=== PATIENT | female | born 1980 | race African-American/Black ===

== ENCOUNTER 2018-09-19 17:06 | Emergency (ER) | payer OTHER ==
[2018-09-19] MEDS ORDERED: SODIUM CHLORIDE 0.9% 1,000 ML IV ONE (18:08)
[2018-09-19] MEDS ORDERED: MORPHINE 10 MG/ML VIAL IVP STA (18:08)
[2018-09-19] MEDS ORDERED: diphenhydrAMINE INJ 50 MG/ML VIAL IVP STA (18:08)
[2018-09-19] MEDS ORDERED: PROCHLORPERAZINE 10 MG/2 ML VIAL IVP STA (18:08)
--- NOTE | 2018-09-19 18:10 | ED Physician Documentation ---
PD HPI HEADACHE - Stated complaint Stated Complaint: HEADACHE, VOMITING - Chief complaint Chief Complaint: Neuro - History obtained from History obtained from: Patient - History of Present Illness Timing - onset: Last night (She had a gradual onset occipital headache since last night with light sensitivity and vomiting. She has a history of migraines but they have been under control because they were thought to be due to lupus and her lupus is in remission. This headache is worse and somewhat different than her usual headaches and is associated with chills and neck stiffness and she is never vomited with her migraines before.) Review of Systems Constitutional: reports: Chills. denies: Fever Eyes: reports: Photophobia Ears: denies: Loss of hearing, Ear pain Cardiac: denies: Chest pain / pressure, Palpitations Respiratory: denies: Dyspnea, Cough GI: denies: Abdominal Pain : reports: Hysterectomy. 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 - Present Medications Home Medications: Ambulatory Orders Medication Instructions Recorded Confirmed SUMAtriptan [Imitrex] 25 mg PO BID PRN #10 tablet 09/19/18 - Allergies Allergies/Adverse Reactions: Allergies Allergy/AdvReac Type Severity Reaction Status Date / Time No Known Drug Allergies Allergy Verified 09/19/18 17:19 - Social History Does the pt smoke?: No Smoking Status: Never smoker Does the pt drink ETOH?: Yes Does the pt have substance abuse?: No - Immunizations Immunizations are current?: Yes - POLST Patient has POLST: No PD ED PE NORMAL - Vitals Vital signs reviewed: Yes - General General: Alert and oriented X 3, Other (Uncomfortable) - HEENT HEENT: PERRL, EOMI - Neck Neck: No bony TTP, Other (She does have some neck stiffness) - Cardiac Cardiac: RRR, No murmur - Respiratory Respiratory: No respiratory distress, Clear bilaterally - Abdomen Abdomen: Non tender - Extremities Extremities: No edema - Neuro Neuro: Alert and oriented X 3, Normal speech Eye Opening: Spontaneous Motor: Obeys Commands Verbal: Oriented GCS Score: 15 - Psych Psych: Normal mood, Normal affect Results - Vitals Vitals: Vital Signs - 24 hr 09/19/18 09/19/18 17:16 18:40 Temperature 36.1 C L Heart Rate 87 79 Respiratory 16 14 Rate Blood Pressure 157/98 H 134/79 H O2 Saturation 99 99 Oxygen O2 Source Room air - Labs Labs: Laboratory Tests 09/19/18 19:00 CSF Color COLORLESS CSF Clarity CLEAR Xanthrochromic ABSENT CSF WBC 0 CSF RBC 0 CSF Cell Count Tube # CSF TUBE# 3 CSF Glucose 60 CSF Total Protein 47 H Procedures - Lumbar Puncture Position: Sitting Location: L3-L4 Anesthesia: Local lidocaine CSF: Clear Other: Sterile prep and drape, Patient tolerated well PD MEDICAL DECISION MAKING - ED course ED course: 38-year-old woman with history of migraines presents with his headache atypical for her and it is associated with neck stiffness. She was initially medicated with modest relief and an LP was done ruling out manage subarachnoid hemorrhage. Then had excellent relief with Imitrex. Departure - Departure Disposition: Home, Self Care Clinical Impression: Migraine Qualifiers: Migraine type: without aura Status migrainosus presence: with status migrainosus Intractability: not intractable Qualified Code(s): G43.001 - Migraine without aura, not intractable, with status migrainosus Condition: Good Record reviewed to determine appropriate education?: Yes Instructions: Imitrex, ED Headache Migraine Prescriptions: SUMAtriptan [Imitrex] 25 mg PO BID PRN #10 tablet PRN Reason: Headache Comments: Follow-up with your artificial breast fabricator as scheduled. Return for new or worsening symptoms. Do not drive tonight. Your blood pressure was elevated today on check into the emergency department. This does not mean that you have hypertension, it is a common phenomenon to come to the emergency department and have elevated blood pressure. I recommend that you see your primary care physician within the week to have it rechecked when you are feeling better.
[2018-09-19] MEDS ORDERED: LIDOCAINE 1%-EPI 1:100000 30 ML MDV SUBQ STA (18:12)
[2018-09-19] MEDS ORDERED: SUMAtriptan 6 MG/0.5 ML VIAL SUBQ STA (19:03)
[2018-09-19 19:16] LABS: CLARITY,CSF CLEAR (CLEAR); COLOR,CSF COLORLESS (COLORLESS); CSF TUBE # CSF TUBE# 3; CSF XANTHOCHROMIA ABSENT (ABSENT); RED BLOOD CELL,CSF 0 /mm^3 (0-1); WHITE BLOOD CELL,CSF 0 /mm^3 (0-5)
[2018-09-19 19:32] LABS: CSF - GLUCOSE 60 mg/dL (45-70)
[2018-09-19 19:43] VITALS: BP 138/77
== END 2018-09-19 19:44 | disposition home or self-care (01) ==
LOC: ED 17:06
DX: G43.001 Migraine without aura, not intractable, with status migrainosus (principal); R03.0 Elevated blood-pressure reading, without diagnosis of hypertension
CPT/HCPCS: 62270; 82945; 84157; 87070; 87205; 89051; 96372; 96374; 96375; 99284; J1200

== ENCOUNTER 2018-09-22 11:35 | Emergency (ER) | payer OTHER ==
--- NOTE | 2018-09-22 12:10 | ED Physician Documentation ---
PD HPI HEADACHE - Stated complaint Stated Complaint: MIGRAINE/NAUSEA/DIZINESS - Chief complaint Chief Complaint: Neuro - History obtained from History obtained from: Patient - History of Present Illness Timing - onset: How many days ago (several) Timing - onset during: Light activity Timing - duration: Days Timing - details: Gradual onset, Still present, Waxing and waning Worst headache ever?: No: Worst headache ever? (feeling similar to prior migraines, but had not had one for couple of years or more) Location: Global Quality: Throbbing, Aching Associated symptoms: Stiff neck, Nausea. No: Fever, Vomiting, Weakness, Numb ness Worsened by: Light Contributing factors: No: Recent illness Similar symptoms before: Diagnosis (migraines but not for awhile, and her migraines had been associated with her lupus flareups in the past and she has been in remission for couple years or so.) Recently seen: Emergency Dept (3 days ago, with some improvement in GRANGER here with meds including Imitrex. Had labs and LP done. She says the character of the headache did not change, so she believes it is still the same headache and not a post-LP headache instead.) Review of Systems Constitutional: reports: Myalgias. denies: Fever, Chills Nose: denies: Rhinorrhea / runny nose, Congestion Throat: denies: Sore throat Cardiac: denies: Chest pain / pressure, Palpitations Respiratory: reports: Dyspnea. denies: Cough GI: reports: Nausea. denies: Abdominal Pain, Vomiting, Diarrhea : denies: Dysuria, Frequency Skin: denies: Rash, Lesions Musculoskeletal: reports: Extremity pain (diffusely). 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: Hysterectomy - Present Medications Home Medications: Ambulatory Orders Medication Instructions Recorded Confirmed SUMAtriptan [Imitrex] 25 mg PO BID PRN #10 tablet 09/19/18 09/22/18 Dexamethasone [Decadron] 4 mg PO DAILY #5 tablet 09/22/18 Naproxen 375 mg PO BID #20 tablet 09/22/18 Ondansetron Odt [Zofran] 4 mg TL Q6H PRN #10 tablet 09/22/18 Oxycodone HCl/Acetaminophen 1 each PO Q6H PRN #14 tablet 09/22/18 [Percocet 5-325 mg Tablet] - Allergies Allergies/Adverse Reactions: Allergies Allergy/AdvReac Type Severity Reaction Status Date / Time No Known Drug Allergies Allergy Verified 09/22/18 14:26 - Social History Does the pt smoke?: No Smoking Status: Never smoker Does the pt drink ETOH?: Yes Does the pt have substance abuse?: No - Immunizations Immunizations are current?: Yes - POLST Patient has POLST: No PD ED PE NORMAL - Vitals Vital signs reviewed: Yes - General General: Alert and oriented X 3, No acute distress, Well developed/nourished - HEENT HEENT: Atraumatic, Ears normal, Pharynx benign - Neck Neck: Supple, no meningeal sign, No adenopathy - Cardiac Cardiac: RRR, No murmur - Respiratory Respiratory: Clear bilaterally - Abdomen Abdomen: Soft, Non tender - Back Back: No CVA TTP - Derm Derm: Normal color, Warm and dry, No rash - Extremities Extremities: No deformity, No tenderness to palpate, Normal ROM s pain, No edema, No calf tenderness / cord - Neuro Neuro: Alert and oriented X 3, rn surgery 2-12 intact, No motor deficit, No sensory deficit, Normal speech Results - Vitals Vitals: Oxygen O2 Source Room air - Labs Labs: Laboratory Tests 09/22/18 09/22/18 09/22/18 12:05 12:05 12:05 WBC 5.6 RBC 4.49 Hgb 14.4 Hct 41.7 MCV 92.7 MCH 32.1 H MCHC 34.6 RDW 13.3 Plt Count 334 MPV 7.3 L Neut # (Auto) 3.5 Lymph # (Auto) 1.7 Kidder # (Auto) 0.4 Eos # (Auto) 0.1 Baso # (Auto) 0.0 Absolute Nucleated RBC 0.00 Nucleated RBC % 0.0 ESR 5 Sodium 136 Potassium 3.5 Chloride 100 L Carbon Dioxide 25 Anion Gap 11.0 BUN 13 Creatinine 0.7 Estimated GFR (MDRD) 115 Glucose 148 H Calcium 9.5 Total Bilirubin 0.4 AST 21 ALT 21 Alkaline Phosphatase 56 Total Protein 8.2 Albumin 5.0 Globulin 3.2 Albumin/Globulin Ratio 1.6 Lipase 36 PD MEDICAL DECISION MAKING - ED course Complexity details: reviewed old records, re-evaluated patient (improved after some doses of meds in ED, mainly tailored toward migraine. ), considered differential (seems migraine and had normal LP 3 days ago. Does not seem like post LP headache. ), d/w patient Departure - Departure Disposition: 01 Home, Self Care Clinical Impression: Migraine Qualifiers: Migraine type: unspecified Status migrainosus presence: with status migrainosus Intractability: not intractable Qualified Code(s): G43.901 - Migraine, unspecified, not intractable, with status migrainosus Condition: Stable Record reviewed to determine appropriate education?: Yes Instructions: ED Headache Migraine Follow-Up: Piedad Stroud MD [Primary Care Provider] - Prescriptions: Dexamethasone [Decadron] 4 mg PO DAILY #5 tablet Naproxen 375 mg PO BID #20 tablet Ondansetron Odt [Zofran] 4 mg TL Q6H PRN #10 tablet PRN Reason: Nausea / Vomiting Oxycodone HCl/Acetaminophen [Percocet 5-325 mg Tablet] 1 each PO Q6H PRN #14 tablet PRN Reason: pain Comments: Stay well-hydrated with lots of fluids. Dexamethasone steroid daily for 5 more days. Also add naproxen anti-inflammatory twice daily for the next several days to week. Use ondansetron if needed for nausea. Add oxycodone if needed for headache. Recheck if not improved over the next couple of days. For subsequent headaches try the Imitrex along with the ondansetron and naproxen to see if it will alleviate subsequent migraines. Follow-up with your primary care tomorrow as scheduled. Return as needed. Discharge Date/Time: 09/22/18 16:52
[2018-09-22] MEDS ORDERED: SODIUM CHLORIDE 0.9% 1,000 ML IV ONE (12:34)
[2018-09-22] MEDS ORDERED: DEXAMETHASONE 10 MG/ML VIAL IVP STA (12:35)
[2018-09-22] MEDS ORDERED: KETOROLAC 30 MG/ML VIAL IVP STA (12:35)
[2018-09-22] MEDS ORDERED: diphenhydrAMINE INJ 50 MG/ML VIAL IVP STA (12:35)
[2018-09-22] MEDS ORDERED: METOCLOPRAMIDE 10 MG/2 ML VIAL IVP STA ×2 (12:38→13:29)
[2018-09-22] MEDS ORDERED: MORPHINE 2 MG/ML CARPUJECT IVP STA (12:38)
[2018-09-22 12:48] LABS: BASOPHILS % (AUTO) 0.5 %; EOSINOPHILS # (AUTO) 0.1 10^3/uL (0.0-0.7); EOSINOPHILS % (AUTO) 0.9 %; HGB - HEMOGLOBIN 14.4 g/dL (12.0-16.0); LYMPHOCYTES # (AUTO) 1.7 10^3/uL (1.5-3.5); LYMPHOCYTES % (AUTO) 30.8 %; MEAN CORPUSCULAR HEMOGLOBIN 32.1 pg (27.0-31.0); MEAN CORPUSCULAR HGB CONC 34.6 g/dL (32.0-36.0); MEAN CORPUSCULAR VOLUME 92.7 fL (81.0-99.0); MEAN PLATELET VOLUME 7.3 fL (7.9-10.8); MONOCYTES # (AUTO) 0.4 10^3/uL (0.0-1.0); MONOCYTES % (AUTO) 6.4 %; NEUTROPHILS # (AUTO) 3.5 10^3/uL (1.5-6.6); NEUTROPHILS % (AUTO) 61.4 %; PLT - PLATELET COUNT 334 10^3/uL (130-450); RED BLOOD COUNT 4.49 10^6/uL (4.20-5.40); RED CELL DISTRIBUTION WIDTH 13.3 % (12.0-15.0); WHITE BLOOD COUNT 5.6 x10^3/uL (4.8-10.8)
[2018-09-22 12:57] LABS: ALBUMIN/GLOBULIN RATIO 1.6 (1.0-2.2); BILIRUBIN,TOTAL 0.4 mg/dL (0.2-1.0); CALCIUM 9.5 mg/dL (8.5-10.3); CREATININE 0.7 mg/dL (0.4-1.0); TOTAL PROTEIN 8.2 g/dL (6.7-8.2)
[2018-09-22] MEDS ORDERED: HYDROmorphone 2 MG/ML VIAL IVP STA (13:29)
[2018-09-22 16:42] VITALS: BP 140/104
== END 2018-09-22 16:52 | disposition home or self-care (01) ==
LOC: ED 11:35
DX: G43.901 Migraine, unspecified, not intractable, with status migrainosus (principal)
CPT/HCPCS: 36415; 80053; 83690; 85025; 85651; 96374; 96375; 99283; 99284; J1170; J1200; J2765

== ENCOUNTER 2019-09-17 07:31 | Emergency (ER) | payer OTHER ==
[2019-09-17] MEDS ORDERED: FOLIC ACID INJ 1 MG, THIAMINE INJ 100 MG, MAGNESIUM SULFATE 2 GM, MULTIVITAMIN 10 ML in... IV STA ×5 (07:51)
[2019-09-17] MEDS ORDERED: ONDANSETRON 4 MG/2 ML VIAL IVP STA ×2 (07:52→11:50)
[2019-09-17] MEDS ORDERED: DEXAMETHASONE 10 MG/ML VIAL IVP STA (07:52)
[2019-09-17] MEDS ORDERED: PANTOPRAZOLE 40 MG VIAL IVP STA (07:52)
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
[2019-09-17 08:01] LABS: BILIRUBIN,URINE NEGATIVE (NEGATIVE); GLUCOSE, URINE (UA) NEGATIVE (NEGATIVE); KETONES,URINE (UA) TRACE mg/dL (NEGATIVE); LEUKOCYTE ESTERASE, URINE NEGATIVE (NEGATIVE); NITRITE,URINE NEGATIVE (NEGATIVE); OCCULT BLOOD,URINE TRACE-INTA (NEGATIVE); PROTEIN,URINE NEGATIVE (NEGATIVE); UROBILINOGEN,URINE 0.2 (NORMAL) E.U./dL (NORMAL)
[2019-09-17 08:04] LABS: CLARITY,URINE CLEAR (CLEAR); HCG UR QUAL NEGATIVE
[2019-09-17] MEDS ORDERED: LORazepam 2 MG/ML VIAL IVP STA (08:34)
[2019-09-17 09:21] LABS: BASOPHILS % (AUTO) 0.3 %; HGB - HEMOGLOBIN 13.1 g/dL (12.0-16.0); LYMPHOCYTES # (AUTO) 0.9 10^3/uL (1.5-3.5); LYMPHOCYTES % (AUTO) 12.2 %; MEAN CORPUSCULAR HEMOGLOBIN 31.4 pg (27.0-31.0); MEAN CORPUSCULAR HGB CONC 33.6 g/dL (32.0-36.0); MEAN CORPUSCULAR VOLUME 93.5 fL (81.0-99.0); MEAN PLATELET VOLUME 8.7 fL (7.9-10.8); MONOCYTES # (AUTO) 0.2 10^3/uL (0.0-1.0); MONOCYTES % (AUTO) 3.4 %; NEUTROPHILS % (AUTO) 83.8 %; PLT - PLATELET COUNT 330 10^3/uL (130-450); RED BLOOD COUNT 4.17 10^6/uL (4.20-5.40); WHITE BLOOD COUNT 7.1 x10^3/uL (4.8-10.8)
[2019-09-17] MEDS ORDERED: PROMETHAZINE INJ 25 MG in SODIUM CHLORIDE 0.9% 50 ML IV STA (09:42)
[2019-09-17 09:46] LABS: ALBUMIN 4.6 g/dL (3.2-5.5); ALBUMIN/GLOBULIN RATIO 1.6 (1.0-2.2); BILIRUBIN,TOTAL 0.6 mg/dL (0.2-1.0); CALCIUM 8.4 mg/dL (8.5-10.3); CREATININE 0.6 mg/dL (0.4-1.0); TOTAL PROTEIN 7.5 g/dL (6.7-8.2)
[2019-09-17] MEDS ORDERED: MAG HYDROX/AL HYDROX/SIMETH 30 ML UDC PO STA (10:20)
[2019-09-17] MEDS ORDERED: LIDOCAINE VISCOUS 2% 15 ML UDC MM STA (10:20)
[2019-09-17] MEDS ORDERED: HYDROmorphone 1 MG/ML CARPUJECT IVP STA (11:50)
[2019-09-17 12:58] VITALS: BP 117/55
== END 2019-09-17 13:11 | disposition home or self-care (01) ==
LOC: ED 07:31
DX: K29.20 Alcoholic gastritis without bleeding (principal); F10.988 Alcohol use, unspecified with other alcohol-induced disorder; F43.9 Reaction to severe stress, unspecified; M32.9 Systemic lupus erythematosus, unspecified
CPT/HCPCS: 36415; 80053; 80320; 81003; 81025; 83690; 85025; 96365; 96367; 96375; 99284; 99285; A9270; J1170; J2060; J3411; J7040; 81001; 87086

== ENCOUNTER 2021-09-20 02:02 | Outpatient (CLI) | payer OTHER | END 2021-09-20 02:03 | disposition EMS.NT | LOC: EMS 02:02 | DX: R51.9 Headache, unspecified (principal) ==

== ENCOUNTER 2021-09-20 09:18 | Emergency (ER) | payer OTHER ==
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
[2021-09-20] MEDS ORDERED: KETOROLAC 30 MG/ML VIAL IVP STA (09:56)
[2021-09-20] MEDS ORDERED: ONDANSETRON 4 MG/2 ML VIAL IVP STA (09:56)
[2021-09-20] MEDS ORDERED: SODIUM CHLORIDE 0.9% 1,000 ML IV STA (09:56)
[2021-09-20 10:30] LABS: BASOPHILS % (AUTO) 0.3 %; HCT - HEMATOCRIT 39.9 % (37.0-47.0); HGB - HEMOGLOBIN 13.3 g/dL (12.0-16.0); LYMPHOCYTES # (AUTO) 1.4 10^3/uL (1.5-3.5); LYMPHOCYTES % (AUTO) 18.4 %; MEAN CORPUSCULAR HEMOGLOBIN 31.4 pg (27.0-31.0); MEAN CORPUSCULAR HGB CONC 33.3 g/dL (32.0-36.0); MEAN CORPUSCULAR VOLUME 94.1 fL (81.0-99.0); MEAN PLATELET VOLUME 8.6 fL (7.9-10.8); MONOCYTES # (AUTO) 0.4 10^3/uL (0.0-1.0); MONOCYTES % (AUTO) 5.3 %; NEUTROPHILS # (AUTO) 5.8 10^3/uL (1.5-6.6); NEUTROPHILS % (AUTO) 75.5 %; PLT - PLATELET COUNT 335 10^3/uL (130-450); RED BLOOD COUNT 4.24 10^6/uL (4.20-5.40); RED CELL DISTRIBUTION WIDTH 13.1 % (12.0-15.0); WHITE BLOOD COUNT 7.7 x10^3/uL (4.8-10.8)
[2021-09-20 10:44] LABS: ALBUMIN 4.6 g/dL (3.2-5.5); ALBUMIN/GLOBULIN RATIO 1.4 (1.0-2.2); BILIRUBIN,TOTAL 0.7 mg/dL (0.2-1.0); CALCIUM 8.9 mg/dL (8.5-10.3); CREATININE 0.7 mg/dL (0.4-1.0); POTASSIUM 3.7 mmol/L (3.5-5.0); TOTAL PROTEIN 7.8 g/dL (6.7-8.2)
--- NOTE | 2021-09-20 11:30 | CT Report ---
PROCEDURE: CERVICAL SPINE WO INDICATIONS: fall with head/neck pain TECHNIQUE: Noncontrast 3 mm thick sections acquired from the skull base to the T4 level. Sagittal and coronal r eformats were then constructed. For radiation dose reduction, the following was used: automated exp osure control, adjustment of mA and/or kV according to patient size. COMPARISON: Correlation is made with the accompanying head CT, 09/20/2021. FINDINGS: Image quality: This study is limited by quantum mottle artifact. Bones: No fractures or dislocations. Visualized superior ribs are intact. Focal C5-C6 degenerative change is seen, with endplate irregularity and sclerosis. Mild posterior dir ected endplate osteophytes are seen at this level. Soft tissues: Prevertebral soft tissues are normal in thickness. No paravertebral hematomas. No ap ical pneumothoraces. IMPRESSION: Negative for fracture. Focal C5-C6 degenerative change. Reviewed by: Domo Lima MD on 09/20/2021 10:29 AM [facility] Approved by: Domo Lima MD on 09/20/2021 10:29 AM [facility] Station ID: [id number]
--- NOTE | 2021-09-20 11:33 | CT Report ---
PROCEDURE: HEAD WO INDICATIONS: fall with head/neck pain TECHNIQUE: Noncontrast 4.5 mm thick angled axial sections acquired from the foramen magnum to the vertex. For r adiation dose reduction, the following was used: automated exposure control, adjustment of mA and/or kV according to patient size. COMPARISON: Correlation is made with the accompanying cervical spine CT, 09/20/2021. FINDINGS: Image quality: There is streak artifact from earrings. There is streak artifact seen through the skul l base. CSF spaces: Basal cisterns are patent. No extra-axial fluid collections. Ventricles are normal in size and shape. Brain: No midline shift. No intracranial masses or hemorrhage. Wu-white matter interface is norm al. Skull and face: Calvarium and visualized facial bones are intact, without suspicious lesions. Sinuses: Visualized sinuses and mastoids are clear. IMPRESSION: Limited study demonstrating no definite intracranial hemorrhage. No displaced, fracture is identified. Reviewed by: Domo Lima MD on 09/20/2021 10:31 AM [facility] Approved by: Domo Lima MD on 09/20/2021 10:31 AM [facility] Station ID: [id number]
[2021-09-20] MEDS ORDERED: DROPERIDOL 5 MG/2 ML VIAL IVP STA (11:45)
[2021-09-20] MEDS ORDERED: HYDROmorphone 1 MG/ML CARPUJECT IVP STA (11:48)
[2021-09-20 13:04] VITALS: BP 126/83
== END 2021-09-20 13:09 | disposition home or self-care (01) ==
LOC: ED 09:18
DX: S06.0X9A Concussion with loss of consciousness of unspecified duration, initial encounter (principal); S00.03XA Contusion of scalp, initial encounter; S16.1XXA Strain of muscle, fascia and tendon at neck level, initial encounter; W18.39XA Other fall on same level, initial encounter; W22.8XXA Striking against or struck by other objects, initial encounter
CPT/HCPCS: 36415; 70450; 72125; 80053; 83690; 85025; 96374; 96375; 99282; 99285; J1170